=== PATIENT | female | born 1950 | race Caucasian/White ===

== ENCOUNTER 2018-05-07 06:02 | Day surgery (SDC) | payer MEDICARE, OTHER ==
[~2018-05-07] VITALS: Ht 134.6 cm; Wt 65.0 kg
[~2018-05-07 06:02] MED LIST: ALBU18HF INHALATION; AMIT10TA6 PO; ASPI-727; ATEN50TA PO; FLUT16SP17 NASAL; HUMALOG INSULIN SC; INSU300I SQ; LOSA50TA14 PO; MONT10TA24 PO; OLOP5DRO14 OP; OMEP40CA6 PO; SIMV40TA3
[2018-05-07 07:48] VITALS: Ht 134.6 cm; Wt 65.0 kg
[2018-05-07] MEDS ORDERED: METF-480 PO (07:58)
[2018-05-07] MEDS ORDERED: SITA100T11 PO (07:58)
[2018-05-07] MEDS ORDERED: ATOR40TA68 PO (07:58)
[2018-05-07] MEDS ORDERED: ASPI-699 PO (07:58)
[2018-05-07] MEDS ORDERED: FEXO180T13 PO (07:58)
[2018-05-07] MEDS ORDERED: RANO500T2 PO (07:58)
[2018-05-07] MEDS ORDERED: NITR0.4T39 SL (07:58)
[2018-05-07] MEDS ORDERED: NATE60TA8 PO (07:58)
[2018-05-07] MEDS ORDERED: SYMB80120 INHALATION (07:58)
[2018-05-07 08:58] VITALS: BP 150/67; PULSE 61; RESP 18
--- NOTE | 2018-05-07 08:59 | PREAC ---
Date/Time of Note Date/Time of Note DATE: 05/07/18 TIME: 08:57 Anesthesia Eval and Record Evaluation Time Pre-Procedure Interview DATE: 05/07/18 TIME: 08:57 Age 67 Sex female NPO: 8 hrs Preoperative diagnosis Rectal Bleeding Planned procedure Colonoscopy Past Medical History Past Medical History: Includes Cardio: HTN, Dyslipidemia Endo: Diabetes GI: Obesity Surgery & Anesthesia Issues No known issue Meds Anticoagulation: No Beta Dori within 24 hr: No Reason Beta Dori not given: Pt. not on B-Dori Reported Medications Budesonide-Formoterol Fumarate* (Symbicort*) 80-4.5 Inha, 2 PUFFS INHALATION BID , #1 EACH 05/07/18 Nitroglycerin* (Nitrostat*) 0.4 Mg Tab.subl, 0.4 MG SL Q5MIN PRN for CHEST PAIN, BOTTLE 05/07/18 Aspirin* (Nolan Aspirin* Chew) 81 Mg Tab.chew, 81 MG PO DAILY, TAB.CHEW 05/07/18 Fexofenadine Hcl* (Fexofenadine Hcl*) 180 Mg Tablet, 180 MG PO DAILY, #30 TAB 05/07/18 Sitagliptin* (Januvia*) 100 Mg Tablet, 100 MG PO DAILY, #30 TAB 05/07/18 Nateglinide* (Starlix*) 60 Mg Tablet, 60 MG PO AC MEALS, TAB 05/07/18 Ranolazine* (Ranexa*) 500 Mg Tab.sr.12h, 100 MG PO Q12, TAB 05/07/18 Atorvastatin* (Atorvastatin*) 40 Mg Tablet, 40 MG PO QHS, #30 TAB 05/07/18 Metformin* (Glucophage*) 850 Mg Tablet, 850 MG PO WITH BREAKFAST, #30 TAB 05/07/18 Fluticasone Propionate* (Fluticasone Propionate* Nasal) 50 Mcg/[place] - 16 Gm [place].susp, 1 NASAL BID, #1 BOTTLE TO EACH NOSTRIL 04/27/15 Insulin Glargine,Hum.rec.anlog (Mike Rasmussen) 300 Unit/1 Ml Insuln.pen, 300 UNIT SQ 04/27/15 Albuterol Sulfate* (Ventolin HFA*) 18 Gm Hfa.aer.ad, 2 PUFF INHALATION Q4H, #1 INHALER 3/1/16 Olopatadine HCl (Olopatadine HCl) 5 Ml Drops, 5 ML OP, BOTTLE 04/27/15 Omeprazole* (Omeprazole*) 40 Mg Capsule.dr, 40 MG PO DAILY, #30 CAP 04/27/15 [Humalog Insulin] No Conflict Check, 20 UNITS SC DAILY, #1 06/11/11 Aspirin (Adult Aspirin) 81 Mg Tab.chew 09/09/10 Discontinued Reported Medications Montelukast Sodium* (Montelukast Sodium*) 10 Mg Tablet, 10 MG PO QHS, #30 TAB 04/27/15 Simvastatin (Simvastatin) 40 Mg Tablet, 40 MG .ROUTE DAILY, #30 TAB 04/27/15 Losartan Potassium* (Losartan Potassium*) 50 Mg Tablet, 50 MG PO DAILY, TAB 04/27/15 Amitriptyline Hcl* (Amitriptyline Hcl*) 10 Mg Tablet, 10 MG PO PRN 11/02/11 Atenolol* (Atenolol*) 50 Mg Tablet, 50 MG PO DAILY 11/02/11 Meds reviewed: Yes Allergies Coded Allergies: No Known Drug Allergy (Verified Allergy, Unknown, 05/07/18) Allergies Reviewed: Yes Labs/Studies Labs Reviewed: Reviewed by anesthesiologist test: N/A Studies: ECG (n/a), CXR (n/a) Pre-procedure Exam Airway: Adequate mouth opening, Adequate thyromental dist Mallampati: Mallampati II Teeth: Normal Lung: Normal Heart: Normal ASA Physical Status ASA physical status: 3 Emergency: None Planned Anesthetic General/MAC: MAC Planned Pain Management Parenteral pain med Pre-operative Attestations Prior to commencing anesthesia and surgery, the patient was re-evaluated, there was verification of: *The patient's identity *The results of appropriate recent lab work and preoperative vital signs *The above evaluation not changing prior to induction *Anesthetic plan, risk benefits, alternative and complications discussed with patient/family; questions answered; patient/family understands, accepts and wishes to proceed. JALEESA LUNA MD May 07, 2018 08:59
--- NOTE | 2018-05-07 09:21 | PAC ---
Date/Time of Note Date/Time of Note DATE: 05/07/18 TIME: 09:20 Post-Anesthesia Notes Post-Anesthesia Note Last documented vital signs Vital Signs Date Temp Pulse Resp B/P (MAP) Pulse Ox O2 O2 Flow FiO2 Time Delivery Rate 05/07/18 98.4 61 18 150/67 98 Room Air 09:08 (94) Activity: WNL Respiratory function: WNL Cardiovascular function: WNL Mental status: Baseline Pain reasonably controlled: Yes Hydration appropriate: Yes Nausea/Vomiting absent: Yes JALEESA LUNA MD May 07, 2018 09:21
[2018-05-07] MEDS ORDERED: PROPOFOL 40 ML ONE (09:31)
[2018-05-07 09:55] VITALS: BP 134/60; RESP 15
--- NOTE | 2018-05-08 05:46 | CONS ---
DATE OF ADMISSION: 05/07/2018 DATE OF CONSULTATION: PATIENT NAME: MARIELA PEÑA TYPE OF CONSULTATION: Preoperative gastroenterology. Dear Dr. Dumont: I thank you very much for this kind referral. HISTORY OF PRESENT ILLNESS: Ms. Mariela Davis is a 67-year-old female patient who has b een referred to me for further evaluation of left lower quadrant abdominal pain with change in the miguelina wel habit with diarrhea. The patient also has got rectal bleeding. She was noted to have iron defic iency anemia. There is no past history of colon neoplasm or inflammatory bowel disease. Appetite is somewhat poor and she states that she has been losing weight. She is known to have had gastritis an d gastroesophageal reflux disease and she has been taking omeprazole. She is status post therapy for monilial esophagitis. No history of liver disease. PAST MEDICAL HISTORY: Status post cholecystectomy. She is on baby aspirin a day. She is hypertensi ve. She has diabetes. No heart disease, lung problem or kidney disease. She has hyperlipidemia. S he is status post appendectomy and oophorectomy. SOCIAL HISTORY: Nonsmoker. No alcohol abuse. FAMILY HISTORY: No family history of gastrointestinal tract neoplasm. ALLERGIES: NO DRUG ALLERGIES. MEDICATIONS: 1. Omeprazole 40 mg p.o. daily. 2. Ferrous sulfate 325 mg p.o. b.i.d. 3. Amlodipine 5 mg p.o. daily. 4. Metformin 850 mg p.o. b.i.d. 5. Insulin daily. 6. Januvia 100 mg p.o. daily. 7. Atorvastatin 40 mg p.o. daily. 8. Ranexa 1000 mg p.o. b.i.d. 9. Aspirin 81 mg p.o. daily. PHYSICAL EXAMINATION: VITAL SIGNS: She is 4 feet, 7 inches tall and weighs 147 pounds, BMI 32, blood pressure 132/84. HEART: Normal heart sounds. LUNGS: Clear. ABDOMEN: Soft. No masses. Normal bowel sounds. NEUROLOGIC: Normal. IMPRESSION: 1. Left lower quadrant abdominal pain. 2. Change in the bowel habit with diarrhea. 3. Rectal bleeding. 4. Iron deficiency anemia. 5. Loss of appetite and weight loss. 6. Gastritis and gastroesophageal reflux disease. 7. The patient is on omeprazole. 8. Status post therapy for monilial esophagitis. 9. Hypertension. 10. Diabetes mellitus. 11. Hyperlipidemia. 12. Status post cholecystectomy, appendectomy and oophorectomy. 13. The patient is on baby aspirin a day. PLAN 1. Continue omeprazole. 2. Colonoscopy for further evaluation. 3. Follow up with the primary MD for the management of elevated BMI and hypertension. The procedure and possible complications are well explained to the patient. She understands and cons ents to the procedure. I thank you once again. With warmest personal regards, Dictated By: ANA MARIA THAPA/HARPREET Conf#: [id number] DID#: [id number]
== END 2018-05-07 15:54 | disposition home or self-care (01) ==
LOC: GIL 06:02
PROVIDERS: ATTEND Internal Medicine Gastroenterology
DX: K64.8 Other hemorrhoids (principal); K63.89 Other specified diseases of intestine; K57.30 Diverticulosis of large intestine without perforation or abscess without bleeding; I10 Essential (primary) hypertension; E78.5 Hyperlipidemia, unspecified; E11.9 Type 2 diabetes mellitus without complications
CPT/HCPCS: 82962; 88305